=== PATIENT | female | born 1995 | race Caucasian/White ===

== ENCOUNTER 2016-03-08 01:37 | Emergency (ER) | payer SELFPAY ==
[~2016-03-08] VITALS: Ht 160 cm; Wt 45.4 kg
[2016-03-08 02:04] LABS: NEG OBC UR NEG; POS OBC UR POS
[2016-03-08 02:08] LABS: BILIRUBIN,URINE NEGATIVE (NEG); GLUCOSE,URINE NEGATIVE (NEG); NITRITE,URINE NEGATIVE (NEG); PROTEIN,URINE NEGATIVE (NEG-TRACE)
[2016-03-08 02:24] LABS: BASO # 0.1 x10^3/uL (0.0-0.2); BASO % 0 % (0-3); EOS % 1 % (0-3); HEMATOCRIT 39.4 % (36.0-47.0); HEMOGLOBIN 13.3 g/dL (12.0-15.5); LYMPH # 1.8 x10^3/uL (1.0-4.8); LYMPH % 13 % (24-48); MEAN CORPUSCULAR HEMOGLOBIN 33 pg (25-35); MEAN CORPUSCULAR HGB CONC 34 g/dL (31-37); MEAN CORPUSCULAR VOLUME 97 fL (79-100); MONO % 7 % (0-9); NEUT % 80 % (31-73); PLATELET COUNT 183 x10^3/uL (140-400); RED BLOOD COUNT 4.05 x10^6/uL (3.50-5.40); RED CELL DISTRIBUTION WIDTH 12.3 % (11.5-14.5); WHITE BLOOD COUNT 14.4 x10^3/uL (4.0-11.0)
[2016-03-08 02:26] LABS: BACTERIA,URINE MODERATE /HPF (0-FEW); RBC,URINE OCC /HPF (0-2)
[2016-03-08 02:27] LABS: SQUAMOUS EPITHELIAL CELL,UR MANY /LPF
[2016-03-08 02:41] LABS: CALCIUM 9.3 mg/dL (8.5-10.1); CREATININE 0.6 mg/dL (0.6-1.0); GFR 128.8; POTASSIUM 3.1 mmol/L (3.5-5.1)
[2016-03-08 02:47] LABS: DIRECT BILIRUBIN 0.1 mg/dL (0.0-0.2); TOTAL BILIRUBIN 0.4 mg/dL (0.2-1.0); TOTAL PROTEIN 7.1 g/dL (6.4-8.2)
--- NOTE | 2016-03-08 03:13 | RAD ---
INDICATION: Pelvic pain. COMPARISON: None TECHNIQUE: Transabdominal grayscale and spectral doppler ultrasound images are obtained of the pelvis. Transvaginal ultrasound images obtained as well. FINDINGS: Dimensions are in mm Uterus: 90 x 67 x 45 Endometrial Stripe: Intrauterine gestational sac is identified. pole is identified with crown-rump length 18 millimeter Heartbeat 139 There may be 2 yolk sacs identified with 1 within the amniotic cavity the other external. Right ovary: 25 x 23 x 20 Left ovary: 23 x 15 x 15 Vascular flow is identified to the bilateral ovaries. IMPRESSION: Intrauterine is identified with estimated gestational age of 8 weeks and 3 days with estimated due date of 10/15/2016. There are 2 suspected yolk sacs identified with 1 internal and 1 external to the amnion. Recommend routine anomaly screening at 18-22 weeks. Small amount of debris is suspected the cervical region. Electronically signed by: Romario Silva (Mar 08, 2016 03:11:02)
[2016-03-08] MEDS ORDERED: CEPH-264 PO (03:31)
--- NOTE | 2016-03-08 03:31 | PHYS DOC ---
Past Medical History Past Medical History: Other Additional Past Medical Histor: SPONTANEOUS Past Surgical History: No Surgical History Alcohol Use: None Drug Use: Marijuana Social History Narrative: HAS NOT SMOKED SINCE FINDING OUT ABOUT Adult General Chief Complaint Chief Complaint: ABDOMINAL PAIN IN HPI HPI 20-year-old female presenting the emergency department with right lower quadrant abdominal pain in . The patient reports being approximately 8 weeks by last menstrual period. She complains of nausea without vomiting or diarrhea. She denies any fevers or chills. Her pain is sharp intermittent mild to moderate and without exacerbating or alleviating factors. She reports being able to eat and was able to finish her last meal without difficulty. Review of systems is negative for chest pain shortness of breath. Negative for fevers or chills. All other review of systems is negative unless otherwise noted in history of present illness. Review of Systems Review of Systems See above. Allergies Allergies Allergies Coded Allergies Type Severity Reaction Last Updated Verified No Known Drug Allergies 09/28/13 No Physical Exam Physical Exam Constitutional: Well developed, well nourished, no acute distress, non-toxic appearance. HENT: Normocephalic, atraumatic, bilateral external ears normal, oropharynx moist, no oral exudates, nose normal. [] Eyes: PERRLA, EOMI, conjunctiva normal, no discharge. Neck: Normal range of motion, no tenderness, supple, no stridor. [] Cardiovascular:Heart rate regular rhythm, no murmur Lungs & Thorax: Bilateral breath sounds clear to auscultation [] Abdomen: Soft and minimally tender in the right lower quadrant. Negative McBurney's point. More consistent with suprapubic pain more medial than the typical location for the appendix. No rebound tenderness or guarding present. Skin: Warm, dry, no erythema, no rash. [] Back: No tenderness, no CVA tenderness. [] Extremities: No tenderness, no cyanosis, no clubbing, ROM intact, no edema. Neurologic: Alert and oriented X 3, normal motor function, normal sensory function, no focal deficits noted. Psychologic: Affect normal, judgement normal, mood normal. [] Current Patient Data Vital Signs Vital Signs Date Time Temp Pulse Resp B/P Pulse Ox O2 Delivery O2 Flow Rate FiO2 03/08/16 03:40 108 20 118/72 97 Room Air 2/1/17 01:40 97.6 97.6 Lab Values Laboratory Tests Test 03/08/16 01:45 03/08/16 02:17 Urine Collection Type Unknown Urine Color Yellow Urine Clarity Cloudy Urine pH 6.0 Urine Specific [place] 1.025 Urine Protein Negativemg/dL (NEG-TRACE) Urine Glucose (UA) Negativemg/dL (NEG) Urine Ketones (Stick) Negativemg/dL (NEG) Urine Blood Trace (NEG) Urine Nitrite Negative (NEG) Urine Bilirubin Negative (NEG) Urine Urobilinogen Dipstick 1.0mg/dL (0.2 mg/dL) Urine Leukocyte Esterase Moderate (NEG) Urine RBC Occ/HPF (0-2) Urine WBC 11-20/HPF (0-4) Urine Squamous Epithelial Cells Many/LPF Urine Bacteria Moderate/HPF (0-FEW) Urine Mucus Marked/LPF Urine Test Positive (NEG) White Blood Count 14.4x10^3/uL (4.0-11.0) H Red Blood Count 4.05x10^6/uL (3.50-5.40) Hemoglobin 13.3g/dL (12.0-15.5) Hematocrit 39.4% (36.0-47.0) Mean Corpuscular Volume 97fL (79-100) Mean Corpuscular Hemoglobin 33pg (25-35) Mean Corpuscular Hemoglobin Concent 34g/dL (31-37) Red Cell Distribution Width 12.3% (11.5-14.5) Platelet Count 183x10^3/uL (140-400) Neutrophils (%) (Auto) 80% (31-73) H Lymphocytes (%) (Auto) 13% (24-48) L Monocytes (%) (Auto) 7% (0-9) Eosinophils (%) (Auto) 1% (0-3) Basophils (%) (Auto) 0% (0-3) Neutrophils # (Auto) 11.5x10^3uL (1.8-7.7) H Lymphocytes # (Auto) 1.8x10^3/uL (1.0-4.8) Monocytes # (Auto) 0.9x10^3/uL (0.0-1.1) Eosinophils # (Auto) 0.1x10^3/uL (0.0-0.7) Basophils # (Auto) 0.1x10^3/uL (0.0-0.2) Maternal Serum HCG Beta Subunit 28272cQU/mL (0-6) H Sodium Level 138mmol/L (136-145) Potassium Level 3.1mmol/L (3.5-5.1) L Chloride Level 102mmol/L (98-107) Carbon Dioxide Level 27mmol/L (21-32) Anion Gap 9 (6-14) Blood Urea Nitrogen 9mg/dL (7-20) Creatinine 0.6mg/dL (0.6-1.0) Estimated GFR (Cockcroft-Gault) 128.8 Glucose Level 108mg/dL (70-99) H Calcium Level 9.3mg/dL (8.5-10.1) Total Bilirubin 0.4mg/dL (0.2-1.0) Direct Bilirubin 0.1mg/dL (0.0-0.2) Aspartate Amino Transferase (AST) 15U/L (15-37) Alanine Aminotransferase (ALT) 17U/L (14-59) Alkaline Phosphatase 42U/L (46-116) L Total Protein 7.1g/dL (6.4-8.2) Albumin 4.0g/dL (3.4-5.0) Lipase 117U/L (73-393) Laboratory Tests 03/08/16 02:17 Laboratory Tests 03/08/16 02:17 EKG EKG [] Radiology/Procedures Radiology/Procedures [facility] [address] [place], [place] [id number] IMAGING REPORT Signed PATIENT: REMA ALDRICH ACCOUNT: [id number] : 1995 LOCATION: ER AGE: 20 SEX: F EXAM STATUS: REG ER ORD. PHYSICIAN: MALU ESCALERA MD REASON: abd pain in preg PROCEDURE: PREG 1ST TRIMESTER INDICATION: Pelvic pain. COMPARISON: None TECHNIQUE: Transabdominal grayscale and spectral doppler ultrasound images are obtained of the pelvis. Transvaginal ultrasound images obtained as well. FINDINGS: Dimensions are in mm Uterus: 90 x 67 x 45 Endometrial Stripe: Intrauterine gestational sac is identified. pole is identified with crown-rump length 18 millimeter Heartbeat 139 There may be 2 yolk sacs identified with 1 within the amniotic cavity the other external. Right ovary: 25 x 23 x 20 Left ovary: 23 x 15 x 15 Vascular flow is identified to the bilateral ovaries. IMPRESSION: Intrauterine is identified with estimated gestational age of 8 weeks and 3 days with estimated due date of 10/15/2016. There are 2 suspected yolk sacs identified with 1 internal and 1 external to the amnion. Recommend routine anomaly screening at 18-22 weeks. Small amount of debris is suspected the cervical region. Electronically signed by: Monty Chaney (Mar 08, 2016 03:11:02) DICTATED and SIGNED BY: MONTY CHANEY MD DATE: 03/08/16310 CC: MALU ESCALERA MD; NO PCP ~ [] Course & Med Decision Making Course & Med Decision Making Pertinent Labs and Imaging studies reviewed. (See chart for details) 20-year-old female presenting the emergency department with right lower quadrant /suprapubic abdominal pain in . On evaluation the patient was afebrile with a mildly tachycardic heart rate. Otherwise physical exam showed minimal tenderness in the lower right abdomen. Ultrasound was obtained which showed intrauterine . Low risk for heterotopic . Work obtained which showed leukocytosis. Urinalysis suggestive of infection. Chemistry panel was otherwise unremarkable. I had a long discussion with the patient about the risk for appendicitis and . I discussed the options of ultrasound versus admission for serial examinations. We also discussed the option for home monitoring and close follow-up. Collectively, we decided that we would pursue home monitoring with close follow-up. She was to return to the emergency department if she developed anorexia or her pain worsened or she developed a fever. Recommended she follow up with her efficiency miner in the next 1-2 days Dragon Disclaimer Dragon Disclaimer This electronic medical record was generated, in whole or in part, using a voice recognition dictation system. Departure Departure Impression: Primary Impression: Abdominal pain affecting Additional Impression: UTI (urinary tract infection) Disposition: HOME, SELF-CARE Condition: STABLE Referrals: NO PCP (PCP) EUNICE QUICK MD Patient Instructions: Abdominal Pain During , Abdominal Pain, Possible Early Appendicitis Additional Instructions: Thank you for allowing us to participate in your care today. Followup with your primary care physician in 3 days if your symptoms do not improve. If you do not have a primary care provider you can ask for a list of our primary care providers. Return to the emergency department you have any new or concerning findings. This should be evaluated by the primary care physician and any necessary consulting services for continued management within a few days after discharge. Return to emergency room if you have any new or concerning symptoms including but not limited to fever, chills, nausea, vomiting, intractable pain, any new rashes, chest pain, shortness of air, uncontrolled bleeding, difficulty breathing, and/or vision loss. Scripts Cephalexin (Keflex)500 Mg Capsule1 Cap PO BID #14 CAP Prov:MALU ESCALERA MD 03/08/16 Problem Qualifiers MALU ESCALERA MD Mar 08, 2016 03:31
[2016-03-08 03:40] VITALS: BP 118/72
== END 2016-03-08 03:40 | disposition home or self-care (01) ==
LOC: ER 01:37
DX: O23.41 Unspecified infection of urinary tract in pregnancy, first trimester (principal); Z3A.08 8 weeks gestation of pregnancy; F12.10 Cannabis abuse, uncomplicated
CPT/HCPCS: 36415; 76801; 80048; 80076; 81001; 81025; 83690; 84702; 85027; 86901; 87086; 99285-25

== ENCOUNTER 2016-05-12 21:07 | Emergency (ER) | payer OTHER ==
[~2016-05-12] VITALS: Ht 160 cm; Wt 41.7 kg
[~2016-05-12 21:07] MED LIST: CEPH-264 PO
[2016-05-12 21:29] VITALS: BP 133/69
[2016-05-12] MEDS ORDERED: IV NORMAL SALINE 1000ML BAG 1,000 ML IV SCH (21:32)
[2016-05-12 21:36] LABS: POTASSIUM ISTAT 3.4 mmol/L (3.5-5.0)
--- NOTE | 2016-05-12 21:39 | PHYS DOC ---
Past Medical History Past Medical History: Other Additional Past Medical Histor: SPONTANEOUS Past Surgical History: No Surgical History Smoking: Cigarettes Alcohol Use: None Drug Use: Marijuana (not in ) Adult General Chief Complaint Chief Complaint: DIZZY/LIGHT HEADED HPI HPI Patient is a 20 year old female approx 18 wks who presents with family for general weakness and shaky feeling starting this evening associated with lightheadedness. She states she has a few episodes of "dehydration" and this feels similar. She has mild runny stools recently. No sick contacts or recent travel. She denies headache, chest pain, palpitations, diaphoresis, cough, dyspnea, abdominal pain, dysuria, hematuria, vaginal bleeding or discharge. Review of Systems Review of Systems Constitutional: Denies fever or chills [] Eyes: Denies change in visual acuity, redness, or eye pain [] HENT: Denies nasal congestion or sore throat [] Respiratory: Denies cough or shortness of breath [] Cardiovascular: No additional information not addressed in HPI [] GI: Denies abdominal pain, nausea, vomiting, bloody stools or diarrhea [] : Denies dysuria or hematuria [] Musculoskeletal: Denies back pain or joint pain [] Integument: Denies rash or skin lesions [] Neurologic: Denies headache, focal weakness or sensory changes [] Endocrine: Denies polyuria or polydipsia [] Current Medications Current Medications Current Medications Medications (Trade) Dose Ordered Sig/Emmy Start Time Stop Time Status Last Admin Dose Admin Sodium Chloride (Iv Sodium Chloride 0.9% 1000ml Bag) 1,000 ml @ 1,000 mls/hr Q1H 05/12/16 21:32 05/12/16 22:32 DC 05/12/16 21:40 1,000 MLS/HR Allergies Allergies Allergies Coded Allergies Type Severity Reaction Last Updated Verified No Known Drug Allergies 09/28/13 No Physical Exam Physical Exam Constitutional: Well developed, well nourished, no acute distress, non-toxic appearance. [] HENT: Normocephalic, atraumatic, bilateral external ears normal, oropharynx moist, no oral exudates, nose normal. [] Eyes: PERRLA, EOMI, conjunctiva normal, no discharge. [] Neck: Normal range of motion, supple. [] Cardiovascular: Regular tachycardia [] Lungs & Thorax: Bilateral breath sounds clear to auscultation [] Abdomen: Bowel sounds normal, soft, no tenderness. Gravid below umbilicus. [] Skin: Warm, dry, no erythema, no rash. [] Back: No tenderness, no CVA tenderness. [] Extremities: No tenderness, ROM intact, no edema. [] Neurologic: Alert and oriented X 3, normal motor function, normal sensory function, no focal deficits noted, cranial nerves II through XII intact. [] Psychologic: Affect normal, judgement normal, mood normal. [] Current Patient Data Vital Signs Vital Signs Date Time Temp Pulse Resp B/P Pulse Ox O2 Delivery O2 Flow Rate FiO2 05/12/16 21:29 98.4 125 18 133/69 99 Room Air 98.4 Lab Values Laboratory Tests Test 05/12/16 20:28 05/12/16 21:28 POC Urine HCG, Qualitative Hcg positive (Negative) POC Hemoglobin 11.6g/dL (12-15) L POC Hematocrit 34% (36-40) L POC Sodium 139mmol/L (135-145) POC Potassium 3.4mmol/L (3.5-5.0) L POC Chloride 104mmol/L (98-110) POC Total CO2 23mmol/L (23-32) Anion Gap 18mmol/L (6-14) H POC Blood Urea Nitrogen 4mg/dL (8-26) L POC Creatinine 0.4mg/dL (0.5-1.4) L Glucose Level 97mg/dL (70-99) POC Ionized Calcium ([place]obi) 1.24mmol/L (1.13-1.32) Laboratory Tests 05/12/16 21:28 EKG EKG EKG as interpreted by me as sinus tachycardia, rate 119, no ST-T changes, normal intervals, no ectopy Course & Med Decision Making Course & Med Decision Making Pertinent Labs and Imaging studies reviewed. (See chart for details) Workup is unremarkable. She is feeling better after IV fluids and would like to go home. Return precautions given. She understands and agrees with plan. Dragon Disclaimer Dragon Disclaimer This electronic medical record was generated, in whole or in part, using a voice recognition dictation system. Departure Departure Impression: Primary Impression: Weakness Disposition: 01 HOME, SELF-CARE Condition: STABLE Referrals: NO PCP (PCP) Patient Instructions: - Second Trimester, [id number] Additional Instructions: Drink liquids to stay hydrated. Follow up with your OB doctor. Return for any concerns. Tani SHELTON MD May 12, 2016 21:39
--- NOTE | 2016-05-13 10:11 | EKG ---
[facility] [address] [place] [id number] Test Date: 2016-05-12 Test Time: 21:19:28 Pat Name: REMA ALDRICH Department: Room: Gender: F Chief Information Security Officer: : 1995 Requested By: Tani SHELTON Order Number: [id number] Reading MD: Measurements Intervals [place] Rate: 119 P: 24 IN: 122 QRS: 83 QRSD: 78 T: 14 QT: 252 QTc: 360 Interpretive Statements SINUS TACHYCARDIA NO SPECIFIC ECG ABNORMALITIES RI6.01 No previous ECG available for comparison
== END 2016-05-12 22:55 | disposition home or self-care (01) ==
LOC: ER 21:07
DX: O26.892 Other specified pregnancy related conditions, second trimester (principal); R53.1 Weakness; R42 Dizziness and giddiness; E86.0 Dehydration; Z3A.18 18 weeks gestation of pregnancy; O99.332 Smoking (tobacco) complicating pregnancy, second trimester; F17.210 Nicotine dependence, cigarettes, uncomplicated; F12.10 Cannabis abuse, uncomplicated
CPT/HCPCS: 80047; 81025; 93005; 96360; 99284; J7030

== ENCOUNTER 2021-02-19 20:54 | Emergency (ER) | payer SELFPAY ==
[~2021-02-19] VITALS: Ht 160 cm; Wt 39.5 kg
--- NOTE | 2021-02-19 21:15 | PHYS DOC ---
Past Medical History Past Medical History: Other Additional Past Medical Histor: SPONTANEOUS Past Surgical History: No Surgical History Smoking Status: Current Every Day Smoker Alcohol Use: None Drug Use: Marijuana General Adult EDM: Chief Complaint: FLU SYMPTOM HPI: HPI: Patient is a 25-year-old female that presents today with a multitude of complaints. Her primary complaint is headache and neck pain with a dizziness that started at 7 AM this morning when she woke up. She states she woke up having a headache with neck pain and dizziness she said she feels a lymph node in the right side of her neck that she feels is inflamed. She denies sore throat, she does state that she has nasal congestion which she stated has been going on for 2 days. Patient also states that she has painful urination, she states this has been going on for about 2 days she also has an associated white vaginal discharge that has been going on for a little over 2 days as well. Patient denies that she could be at this time. Patient states she was at the [facility] emergency department yesterday but had to leave without being seen due to the long wait. Patient denies chest pain, shortness of air, or fever and chills at this time. Patient states she has not had her influenza or COVID vaccines. Review of Systems: Review of Systems: Constitutional: Denies fever or chills. [] Eyes: Denies change in visual acuity. [] HENT: Nasal congestion, neck pain Respiratory: Denies cough or shortness of breath. [] Cardiovascular: Denies chest pain or edema. [] GI: Denies abdominal pain, nausea, vomiting, bloody stools or diarrhea. [] : dysuria. [] Musculoskeletal: Denies back pain or joint pain. [] Integument: Denies rash. [] Neurologic: headache, denies focal weakness or sensory changes. [] Endocrine: Denies polyuria or polydipsia. [] Lymphatic: Right neck lymph node swollen Psychiatric: Denies depression or anxiety. [] Heart Score: C/O Chest Pain: N/A Risk Factors: Risk Factors: DM, Current or recent (<one month) smoker, HTN, HLP, family hi story of CAD, obesity. Risk Scores: Score 0 - 3: 2.5% MACE over next 6 weeks - Discharge Home Score 4 - 6: 20.3% MACE over next 6 weeks - Admit for Clinical Observation Score 7 - 10: 72.7% MACE over next 6 weeks - Early Invasive Strategies Allergies: Allergies: Allergies Coded Allergies Type Severity Reaction Last Updated Verified No Known Drug Allergies 09/28/13 No Physical Exam: PE: Constitutional: Well developed, well nourished, no acute distress, non-toxic appearance. [] HENT: Normocephalic, atraumatic, bilateral external ears normal, oropharynx moist, no oral exudates, nose normal. [] Eyes: PERRLA, EOMI, conjunctiva normal, no discharge. [] Neck: Normal range of motion, no tenderness, supple, no stridor. No midline tenderness swollen lymph node noted on the right cervical area [] Cardiovascular:Heart rate regular rhythm, no murmur [] Lungs & Thorax: Bilateral breath sounds clear to auscultation [] Abdomen: Bowel sounds normal, soft, no tenderness, no masses, no pulsatile masses. [] Skin: Warm, dry, no erythema, no rash. [] Back: No tenderness, no CVA tenderness. [] Extremities: No tenderness, no cyanosis, no clubbing, ROM intact, no edema. [] Neurologic: Alert and oriented X 3, normal motor function, normal sensory function, no focal deficits noted. [] Psychologic: Affect flat, judgement normal, mood normal. [] Current Patient Data: Labs: WET PREP: NEGATIVE FOR YEAST AND TRICH Laboratory Tests Test 02/19/21 21:23 02/19/21 21:25 Urine Collection Type Unknown Urine Color Yellow Urine Clarity Cloudy Urine pH 8.5 Urine Specific [place] >=1.030 Urine Protein 100 mg/dL Urine Glucose (UA) Negative mg/dL Urine Ketones (Stick) Negative mg/dL Urine Blood Negative Urine Nitrite Negative Urine Bilirubin Negative Urine Urobilinogen Dipstick 1.0 mg/dL Urine Leukocyte Esterase Moderate Urine RBC 0 /HPF Urine WBC 1-4 /HPF Urine Squamous Epithelial Cells Mod /LPF Urine Bacteria Few /HPF Urine Mucus Mod /LPF Influenza Type A Antigen Negative Influenza Type B Antigen Negative SARS-CoV-2 Antigen (Rapid) Positive Bedside Urine HCG, Qualitative Hcg negative Vital Signs: Vital Signs Date Time Temp Pulse Resp B/P (MAP) Pulse Ox O2 Delivery O2 Flow Rate FiO2 02/19/21 20:59 98.4 94 20 114/68 (83) 100 Room Air 98.4 EKG: EKG: EKG done at [address] Phillips at 2110 sinus rhythm with an incomplete right bundle branch block at a rate of 98 [place] interval of 156 ms with a QT interval of 444 ms [] Radiology/Procedures: Radiology/Procedures: [REASON: headache PROCEDURE: CT HEAD AND CERVICAL SPINE WO EXAM: CT head and cervical spine without contrast INDICATION: Headache COMPARISON: None TECHNIQUE: Axial CT imaging through the head and cervical spine without intravenous contrast. Sagittal and coronal reformats were obtained. One or more of the following individualized dose reduction techniques were utilized for this examination: 1. Automated exposure control 2. Adjustment of the mA and/or kV according to patient size 3. Use of iterative reconstruction technique. FINDINGS: CT head: The ventricles and sulci are normal. [place]-white matter differentiation is maintained. There is no intracranial hemorrhage, acute infarct, or mass lesion. Basal cisterns are clear. The skull and scalp are intact. There is mucosal thickening in the inferior right ethmoid air cells, likely chronic. The remaining paranasal sinuses and mastoid air cells are clear. Globes and orbits are intact. CT cervical spine: No acute fracture. Alignment is normal. Mild reversal lordosis, likely due to positioning. Disc spaces are maintained. Facet joints are normal. There is no bony canal or foraminal narrowing. Prevertebral soft tissue is normal. Lung apices are clear. IMPRESSION: 1. No acute intracranial abnormality. 2. No acute osseous abnormality cervical spine. 3. Chronic appearing paranasal sinus disease in the right ethmoid air cells. Electronically signed by: Namrata Myles MD (02/19/2021 10:07 PM) [id number] ] Course & Med Decision Making: Course & Med Decision Making Pertinent Labs and Imaging studies reviewed. (See chart for details) 2229 reviewed radiology and laboratory results with patient. Patient informed of her positive COVID status and that she has a urinary tract infection. We will send an antibiotic Macrobid to the pharmacy on file, patient also informed that she is COVID-positive and will need to quarantine for 10 days from the first day of her symptoms. Patient will need to take Tylenol and/or ibuprofen as needed for pain and fever, and also increase by mouth fluids. Patient v erbalized understanding of these instructions agreeable with the plan of care. Michelle Disclaimer: Michelle Disclaimer: This electronic medical record was generated, in whole or in part, using a voice recognition dictation system. Departure Departure Impression: Primary Impression: COVID-19 Additional Impression: UTI (urinary tract infection) Qualified Codes: N30.00 - Acute cystitis without hematuria Disposition: HOME / SELF CARE / HOMELESS Condition: STABLE Referrals: NO PCP (PCP) Patient Instructions: Urinary Tract Infection Additional Instructions: Macrobid take 1 tablet twice daily for seven full days Increase by mouth fluids Tylenol and/or ibuprofen as needed for fever and pain You have been tested for or diagnosed with COVID-19. It is an infection caused by a new type of coronavirus. COVID-19 will cause cold-like or mild flu symptoms in most. It can cause more severe symptoms like problems breathing in some. There is no treatment for COVID-19. The body will clear the infection over time. Self-care will help to ease discomfort. Steps to Take: Self-Care Rest as needed. Healthy habits may help you feel better. Steps include: Choose healthy foods including fruits and vegetables. Drink water throughout the day. Get plenty of sleep each night. If you smoke, try to quit. It may ease breathing. Avoid alcohol. Keep Others Healthy The virus can spread to others. Droplets are released every time you sneeze or cough. The droplets can get into the mouth, nose, or eyes of people near you and lead to i nfection. To lower the chances of spreading COVID-19 to others: Stay at home until your doctor has said it is safe to leave. If you tested positive this will mean staying isolated until both of the following are true: At least 10 days have passed since the start of illness. You are free of fever for at least 72 hours without the use of medicine. During this time: - Avoid public areas, events, or transportation. Do not return to work or school until your doctor has said it is safe to do so. - Call ahead if you need to go to a medical center. Let them know you may have COVID-19. It will help them guide you where to go. They may also ask you to wear a facemask when you come to the office. - If you call for emergency medical services, let them know you may have COVID- 19. While at home: - Try to avoid close contact with others. Stay about 6 feet away. - If possible, spend most of your time in a separate room from others. - Use a face mask if you will be in close contact with others such as sharing a room or vehicle. - Have someone wipe down common surfaces in the home. Use household laundry agent every day on areas like doorknobs, counters, or sinks. - Cough or sneeze into a tissue. Throw the tissue away right after use. If a tissue is not available, cough or sneeze into your elbow. - Wash your hands often. Wash them after sneezing or coughing. Use soap and water and wash for at least 20 seconds. Alcohol based hand cleaner industrial can be used if soap and water is not available. - Do not prepare food for others. Avoid sharing personal items like forks, spoons, or toothbrushes. - Avoid close contact with pets while you are sick. There is no evidence of the virus passing to pets. This is a safety step until more is known about this virus. Isolation can be frustrating. Social interaction can help. Keep in touch with friends and family through phone and tech options. You can still interact with others in your home, just keep a safe distance of about 6 feet. Follow-up: Your doctors office will check in with you to see if there are any changes in your health. You may be asked to keep track of symptoms to share with them. They will also let you know when you are clear to be in public again. Problems to Look Out For: Contact your doctor if your recovery is not going as you expect. Get emergency care if you have problems such as: - Trouble breathing - Nonstop chest pain or pressure - Changes in awareness, confusion, or problems waking - Lips or face have bluish color - Worsening of symptoms If you think you have an emergency, call for emergency medical services right away. As taken from [facility] Nitrofurantoin Monohyd/M-Cryst (MACROBID 100 MG CAPSULE) 100 Mg Capsule 1 CAP PO BID for 7 Days, #14 CAP 0 Refills Prov: FRANNY WALLACE DIE REPAIRER FORGING 02/19/21 FRANNY WALLACE DIE REPAIRER FORGING Feb 19, 2021 21:15
[2021-02-19 21:32] LABS: BILIRUBIN,URINE NEGATIVE (NEG); CLARITY,URINE CLOUDY; COLOR,URINE YELLOW; NITRITE,URINE NEGATIVE (NEG); PH,URINE 8.5 (<5.0-8.0); PROTEIN,URINE 100 mg/dL (NEG-TRACE)
[2021-02-19 21:44] LABS: BACTERIA,URINE FEW /HPF (0-FEW); RBC,URINE 0 /HPF (0-2)
[2021-02-19 21:58] LABS: INFLUENZA A PATIENT NEGATIVE (NEGATIVE); INFLUENZA B PATIENT NEGATIVE (NEGATIVE)
--- NOTE | 2021-02-19 22:10 | RAD ---
EXAM: CT head and cervical spine without contrast INDICATION: Headache COMPARISON: None TECHNIQUE: Axial CT imaging through the head and cervical spine without intravenous contrast. Sagitta l and coronal reformats were obtained. One or more of the following individualized dose reduction techniques were utilized for this examinat ion: 1. Automated exposure control 2. Adjustment of the mA and/or kV according to patient size 3. Use of iterative reconstruction technique. FINDINGS: CT head: The ventricles and sulci are normal. [place]-white matter differentiation is maintained. There is no in tracranial hemorrhage, acute infarct, or mass lesion. Basal cisterns are clear. The skull and scalp a re intact. There is mucosal thickening in the inferior right ethmoid air cells, likely chronic. The r emaining paranasal sinuses and mastoid air cells are clear. Globes and orbits are intact. CT cervical spine: No acute fracture. Alignment is normal. Mild reversal lordosis, likely due to positioning. Disc space s are maintained. Facet joints are normal. There is no bony canal or foraminal narrowing. Prevertebra l soft tissue is normal. Lung apices are clear. IMPRESSION: 1. No acute intracranial abnormality. 2. No acute osseous abnormality cervical spine. 3. Chronic appearing paranasal sinus disease in the right ethmoid air cells. Electronically signed by: Namrata Myles MD (02/19/2021 10:07 PM) [id number]
[2021-02-19] MEDS ORDERED: NITR100C62 PO (22:23)
[2021-02-19 22:30] VITALS: BP 126/79
[2021-02-21 16:09] LABS: GC PROBE Negative (Negative)
--- NOTE | 2021-02-22 14:55 | VNOTE ---
CALL BACK NOTE CALL BACK Microbiology 02/19/21 Urine Culture - Final, Complete 02/19/21 Wet Prep - Final, Complete Positive for chlamydia, spoke to patient, doxycycline prescription called into [facility] on [address] and stated, education on STDs YULY STANFORD APRN Feb 22, 2021 14:55
== END 2021-02-19 22:48 | disposition home or self-care (01) ==
LOC: ER 20:54
DX: U07.1 COVID-19 (principal); N30.00 Acute cystitis without hematuria; R51.9 Headache, unspecified; F17.200 Nicotine dependence, unspecified, uncomplicated
CPT/HCPCS: 70450; 72125; 81001; 81025; 87086; 87428; 87491; 87591; 99284; Q0111

== ENCOUNTER 2021-02-24 13:45 | Emergency (ER) | payer SELFPAY ==
[~2021-02-24] VITALS: Ht 160 cm; Wt 40.6 kg
[~2021-02-24 13:45] MED LIST changes: +NITR100C62 PO
[2021-02-24 13:50] VITALS: BP 132/79
[2021-02-24] MEDS ORDERED: cefTRIAXone IM 500 MG VIAL. IM ONE (14:30)
[2021-02-24] MEDS ORDERED: AZITHROMYCIN 250 MG TABLET. PO ONE (14:30)
[2021-02-24] MEDS ORDERED: ONDANSETRON ODT 4 MG TAB.RAPDIS. PO ONE (14:30)
--- NOTE | 2021-02-24 14:39 | PHYS DOC ---
Past Medical History Past Medical History: Other Additional Past Medical Histor: SPONTANEOUS Past Surgical History: No Surgical History Smoking Status: Current Every Day Smoker Alcohol Use: None Drug Use: Marijuana Adult General Chief Complaint Chief Complaint: MEDICATION REFILL HPI HPI The patient is a 25-year-old female who was diagnosed with a chlamydia infection a few days ago. She was also incidentally found to be COVID positive but has not had any symptoms. She presents for evaluation of nausea whenever she takes a doxycycline pill (she was prescribed doxycycline for her chlamydia infection). She states she is not tolerating the doxycycline very well. Other than this she has no complaints of any kind. Vital signs are appropriate here and she is in no acute distress. Review of Systems Review of Systems A 12 point review of systems was completed and was negative except where noted in HPI above. Current Medications Current Medications Current Medications Medications (Trade) Dose Ordered Sig/Emmy Start Time Stop Time Status Last Admin Dose Admin Azithromycin (Zithromax) 1,000 mg 1X ONCE 02/24/21 14:30 02/24/21 14:31 DC Ceftriaxone Sodium (Rocephin Im) 500 mg 1X ONCE 02/24/21 14:30 02/24/21 14:31 DC Ondansetron HCl (Zofran Odt) 4 mg 1X ONCE 02/24/21 14:30 02/24/21 14:31 DC Allergies Allergies Allergies Coded Allergies Type Severity Reaction Last Updated Verified No Known Drug Allergies 09/28/13 No Physical Exam Physical Exam 25-year-old female appearing nontoxic and in no acute distress. Head is normocephalic and atraumatic. Neck is supple and nontender. Oropharynx is moist. Lungs are clear to auscultation at all stations. There is normal S1 and S2 without rubs or gallops and capillary refill is appropriate, less than 2 seconds globally. Abdomen is soft, nontender and nondistended. Skin is warm and dry without cyanosis, clubbing or edema. Psychiatrically, the patient demonstrates appropriate mood and affect and is alert. Current Patient Data Vital Signs Vital Signs Date Time Temp Pulse Resp B/P (MAP) Pulse Ox O2 Delivery O2 Flow Rate FiO2 02/24/21 13:50 98.9 94 18 132/79 (96) 97 Room Air 98.9 EKG EKG [] Radiology/Procedures Radiology/Procedures [] Course & Med Decision Making Course & Med Decision Making Patient given single dose Rocephin and azithromycin for coverage of gonorrhea and chlamydia, respectively and counseled to stop the Macrobid she was prescribed as her urine culture came back negative for evidence of bacterial UTI. Will discharge with a few Zofran to follow-up closely with primary care. All questions are answered. Dragon Disclaimer Dragon Disclaimer This electronic medical record was generated, in whole or in part, using a voice recognition dictation system. Departure Departure Impression: Primary Impression: Chlamydial cervicitis Disposition: HOME / SELF CARE / HOMELESS Condition: IMPROVED Patient Instructions: Chlamydia, Female Additional Instructions: Follow-up very closely with your primary care doctor in the office in the next 2 to 4 days for a reevaluation of your symptoms and a discussion of next best steps in care. You have been treated fully for chlamydia and gonorrhea. You may stop taking the Macrobid antibiotic you were prescribed for urinary tract infection as your urine culture showed no evidence of a UTI as we discussed. You may take a Zofran tablet underneath the tongue every 8 hours as needed for nausea/vomiting. Drink plenty of fluids. Return to the emergency department right away for worsening symptoms of any kind or with any other new symptoms of concern Scripts Ondansetron (ONDANSETRON ODT) 4 Mg Tab.rapdis 1 TAB PO PRN Q6-8HRS, #5 TAB Prov: RITIKA LYNN MD 02/24/21 RITIKA LYNN MD Feb 24, 2021 14:39
[2021-02-24] MEDS ORDERED: ONDA4TAB12 PO (15:01)
== END 2021-02-24 15:10 | disposition home or self-care (01) ==
LOC: ER 13:45
DX: A56.09 Other chlamydial infection of lower genitourinary tract (principal); F17.200 Nicotine dependence, unspecified, uncomplicated
CPT/HCPCS: 96372; 99283; J0696